=== PATIENT | male | born 1970 | race Caucasian/White ===

== ENCOUNTER 2016-04-29 19:02 | Emergency (ER) | payer BC ==
[2016-04-29] MEDS ORDERED: Aspirin Low Dose CHEW TAB* 81 MG PO ONE (20:13)
[2016-04-29 21:12] LABS: Hematocrit 40 % (42-52); Hemoglobin 13.4 g/dl (14.0-18.0); Mean Corpuscular HGB Conc 34 g/dl (31-36); Mean Corpuscular Hemoglobin 27 pg (27-31); Mean Corpuscular Volume 80 fL (80-94); Mean Platelet Volume 9 um3 (7.4-10.4); Red Cell Distribution Width 13 % (10.5-15); White Blood Count 8.3 10^3/ul (3.5-10.8)
[2016-04-29] MEDS ORDERED: Aspirin EC TAB* 325 MG PO ONE (21:17)
--- NOTE | 2016-04-29 21:17 | RAD ---
INDICATION: Chest pain. COMPARISON: There are no prior studies available for comparison. TECHNIQUE: A portable view of the chest was obtained. FINDINGS: Cardiac and mediastinal contours appear to be within normal limits. The lungs are clear. No pleural effusion is seen. IMPRESSION: NO EVIDENCE FOR ACUTE DISEASE.
[2016-04-29 21:27] LABS: Albumin 4.2 g/dL (3.2-5.2); BUN/Creatinine Ratio 19.4 (8-20); Calcium 9.3 mg/dL (8.6-10.3); EGFR African American 163.5 (>60); EGFR Non-African American 127.1 (>60); Globulin 2.5 g/dL (2-4); Potassium 3.3 mmol/L (3.5-5.0); Total Bilirubin 0.5 mg/dL (0.2-1.0); Total Protein 6.7 g/dL (6.4-8.9)
[2016-04-29 23:39] VITALS: BP 117/75
--- NOTE | 2016-04-30 06:56 | ED ---
Ladarius, DoctorTaylor, scribed for Renuka Salcedo MD on 04/29/16 at 2229 . HPI Chest Pain - HPI Summary HPI Summary: 45 year old male arrived to [facility] c/o chest pain beginning three days ago. He reports pain in the center of his chest, exacerbated by movement when walking and/or bending. He describes his pain as "burning", and reports that the pain was particularly bad today after "breathing in cold air while skiing" around 16: 00. He further reports that he has been experiencing pain on the right and left side, similar to his regular musculoskeletal pain. He regularly sees Dr. Saucedo as well as a physical therapist for chronic musculoskeletal pain; has a PMHx of GERD as well as childhood asthma. - History of Current Complaint Chief Complaint: EDChestPainROMI Time Seen by Provider: 04/29/16 20:49 Hx Obtained From: Patient Onset/Duration: Started Days Ago Timing: Constant Initial Severity: Moderate Current Severity: Moderate Pain Intensity: 7 Pain Scale Used: 0-10 Numeric Chest Pain Radiates To:: Other - "right and left side soreness" Aggravating Factor(s): Position - bending/walking in certain positions, Recumbent Position - lying down exacerbates pain Alleviating Factor(s): Position - Allergy/Home Medications Allergies/Adverse Reactions: Allergies Allergy/AdvReac Type Severity Reaction Status Date / Time Ciprofloxacin Allergy Unknown Unknown Verified 10/12/15 08:00 Reaction Details PMH/Surg Hx/FS Hx/Imm Hx Respiratory History: Reports: Hx Asthma - A CHILD - Immunization History Date of Tetanus Vaccine: utd Date of Influenza Vaccine: fall 2015 Infectious Disease History: No Infectious Disease History: Denies: Traveled Outside the [place] in Last 30 Days - Family History Known Family History: Positive: Other - Father of brain tumor before age 50 Negative: Cardiac Disease - Social History Lives: With Family Alcohol Use: Occasionally Substance Use Type: Reports: None Smoking Status (MU): Never Smoked Tobacco Review of Systems Negative: Fever Positive: Sore Throat Positive: Chest Pain Positive: Other - general musculoskeletal pain on right and left side All Other Systems Reviewed And Are Negative: Yes Physical Exam Triage Information Reviewed: Yes Vital Signs On Initial Exam: Initial Vitals Temp Pulse Resp BP Pulse Ox 99.4 F 86 16 128/90 100 04/29/16 19:05 04/29/16 19:05 04/29/16 19:05 04/29/16 19:05 04/29/16 19:05 Vital Signs Reviewed: Yes Appearance: Positive: Well-Appearing, No Pain Distress Skin: Positive: Warm, Skin Color Reflects Adequate Perfusion, Dry Eyes: Positive: EOMI, IVY ENT: Positive: Pharynx normal, TMs normal Neck: Positive: Supple, Nontender Respiratory/Lung Sounds: Positive: Clear to Auscultation, Breath Sounds Present. Negative: Rales, Rhonchi, Wheezes Cardiovascular: Positive: RRR. Negative: Murmur, Rub Abdomen Description: Positive: Nontender, Soft Bowel Sounds: Positive: Present Musculoskeletal: Positive: Strength/ROM Intact. Negative: Edema Left, Edema Right Neurological: Positive: Sensory/Motor Intact, Alert, Oriented to Person Place, Time, CN Intact II-III Psychiatric: Positive: Affect/Mood Appropriate - Roxana Coma Scale Coma Scale Total: 15 Diagnostics - Vital Signs Vital Signs Temp Pulse Resp BP Pulse Ox 04/29/16 19:05 99.4 F 86 16 128/90 100 - Laboratory Lab Results: Lab Results 04/29/16 04/29/16 04/29/16 Range/Units 21:00 21:00 21:00 WBC 8.3 (3.5-10.8) 10^3/ul RBC 5.00 (4.0-5.4) 10^6/ul Hgb 13.4 L (14.0-18.0) g/dl Hct 40 L (42-52) % MCV 80 (80-94) fL MCH 27 (27-31) pg MCHC 34 (31-36) g/dl RDW 13 (10.5-15) % Plt Count 223 (150-450) 10^3/ul MPV 9 (7.4-10.4) um3 Neut % (Auto) 59.6 (38-83) % Lymph % (Auto) 23.5 L (25-47) % Coffey % (Auto) 11.1 H (1-9) % Eos % (Auto) 5.4 (0-6) % Baso % (Auto) 0.4 (0-2) % Absolute Neuts (auto) 5.0 (1.5-7.7) 10^3/ul Absolute Lymphs (auto) 1.9 (1.0-4.8) 10^3/ul Absolute Monos (auto) 0.9 H (0-0.8) 10^3/ul Absolute Eos (auto) 0.4 (0-0.6) 10^3/ul Absolute Basos (auto) 0 (0-0.2) 10^3/ul Absolute Nucleated RBC 0.01 10^3/ul Nucleated RBC % 0.1 APTT (26.0-36.3) seconds Sodium 136 (133-145) mmol/L Potassium 3.3 L (3.5-5.0) mmol/L Chloride 103 (101-111) mmol/L Carbon Dioxide 28 (22-32) mmol/L Anion Gap 5 (2-11) mmol/L BUN 13 (6-24) mg/dL Creatinine 0.67 (0.67-1.17) mg/dL Est GFR ( Amer) 163.5 (>60) Est GFR (Non-Af Amer) 127.1 (>60) BUN/Creatinine Ratio 19.4 (8-20) Glucose 124 H (70-100) mg/dL Lactic Acid 0.7 (0.5-2.0) mmol/L Calcium 9.3 (8.6-10.3) mg/dL Total Bilirubin 0.50 (0.2-1.0) mg/dL AST 18 (13-39) U/L ALT 23 (7-52) U/L Alkaline Phosphatase 64 (34-104) U/L Troponin I 0.00 (<0.04) ng/mL B-Natriuretic Peptide ( - 100) pg/mL Total Protein 6.7 (6.4-8.9) g/dL Albumin 4.2 (3.2-5.2) g/dL Globulin 2.5 (2-4) g/dL Albumin/Globulin Ratio 1.7 (1-3) 04/29/16 04/29/16 Range/Units 21:00 21:00 WBC (3.5-10.8) 10^3/ul RBC (4.0-5.4) 10^6/ul Hgb (14.0-18.0) g/dl Hct (42-52) % MCV (80-94) fL MCH (27-31) pg MCHC (31-36) g/dl RDW (10.5-15) % Plt Count (150-450) 10^3/ul MPV (7.4-10.4) um3 Neut % (Auto) (38-83) % Lymph % (Auto) (25-47) % Coffey % (Auto) (1-9) % Eos % (Auto) (0-6) % Baso % (Auto) (0-2) % Absolute Neuts (auto) (1.5-7.7) 10^3/ul Absolute Lymphs (auto) (1.0-4.8) 10^3/ul Absolute Monos (auto) (0-0.8) 10^3/ul Absolute Eos (auto) (0-0.6) 10^3/ul Absolute Basos (auto) (0-0.2) 10^3/ul Absolute Nucleated RBC 10^3/ul Nucleated RBC % APTT 29.6 (26.0-36.3) seconds Sodium (133-145) mmol/L Potassium (3.5-5.0) mmol/L Chloride (101-111) mmol/L Carbon Dioxide (22-32) mmol/L Anion Gap (2-11) mmol/L BUN (6-24) mg/dL Creatinine (0.67-1.17) mg/dL Est GFR ( Amer) (>60) Est GFR (Non-Af Amer) (>60) BUN/Creatinine Ratio (8-20) Glucose (70-100) mg/dL Lactic Acid (0.5-2.0) mmol/L Calcium (8.6-10.3) mg/dL Total Bilirubin (0.2-1.0) mg/dL AST (13-39) U/L ALT (7-52) U/L Alkaline Phosphatase (34-104) U/L Troponin I (<0.04) ng/mL B-Natriuretic Peptide 13 ( - 100) pg/mL Total Protein (6.4-8.9) g/dL Albumin (3.2-5.2) g/dL Globulin (2-4) g/dL Albumin/Globulin Ratio (1-3) Result Diagrams: 04/29/16 21:00 04/29/16 21:00 Lab Statement: Any lab studies that have been ordered have been reviewed, and results considered in the medical decision making process. - Radiology Chest X-Ray Radiology Interpretation Completed By: Radiologist - IMPRESSION: NO EVIDENCE FOR ACUTE DISEASE. - EKG 20:30 Cardiac Rate: NL - 86 BPM EKG Rhythm: Sinus Rhythm ST Segment: Normal EKG Interpretation: EKG Normal Chest Pain Course/Dx - Course Course Of Treatment: pt with 2 neg trops normal ekgs ok to go home - Diagnoses Provider Diagnoses: Chest pain Discharge - Discharge Plan Condition: Stable Disposition: HOME Prescriptions: Omeprazole CAP* [Prilosec CAP* 20 MG] 20 mg PO DAILY #14 cap.dr Patient Education Materials: Chest Pain (ED) Referrals: Priya Saucedo MD [Primary Care Provider] - The documentation as recorded by the Doctor quintana Tahera accurately reflects the service I personally performed and the decisions made by me, Renuka Salcedo MD.
== END 2016-04-29 23:39 | disposition home or self-care (01) ==
LOC: ED 19:02
DX: R07.9 Chest pain, unspecified (principal); J02.9 Acute pharyngitis, unspecified; R52 Pain, unspecified
CPT/HCPCS: 36415; 71010; 80053; 83605; 83880; 84484; 85025; 85730; 93005; 99283; A9270-GY

== ENCOUNTER 2017-07-23 20:11 | Emergency (ER) | payer BC ==
[2017-07-23] MEDS ORDERED: Metoclopramide IV* 5 MG/ML 2 ML VIAL IV ONE (21:47)
[2017-07-23] MEDS ORDERED: Ketorolac INJ* 30 MG/ML 1 ML VIAL IV ONE (21:47)
[2017-07-23] MEDS ORDERED: HYDROmorphone INJ* 2 MG/ML CARPUJECT SYRINGE IV SLOW PU ONE (21:47)
[2017-07-23] MEDS ORDERED: NS 0.9% 1000 ML* 1,000 ML IV ONE (21:47)
[2017-07-23 22:10] LABS: ABS Basophils 0.1 10^3/ul (0-0.2); ABS Eosinophils 0 10^3/ul (0-0.6); ABS Lymphocytes 0.8 10^3/ul (1.0-4.8); ABS Monocytes 0.8 10^3/ul (0-0.8); ABS Neutrophils 12.7 10^3/ul (1.5-7.7); ABS Nucleated RBC 0 10^3/ul; Eosinophil % 0.1 % (0-6); Hematocrit 41 % (42-52); Hemoglobin 13.4 g/dl (14.0-18.0); Lymphocyte % 5.6 % (25-47); Mean Corpuscular HGB Conc 33 g/dl (31-36); Mean Corpuscular Hemoglobin 27 pg (27-31); Mean Corpuscular Volume 83 fL (80-94); Mean Platelet Volume 8.6 um3 (7.4-10.4); Nucleated Red Blood Cells % 0; Platelet Count 244 10^3/ul (150-450); Red Cell Distribution Width 13 % (10.5-15); White Blood Count 14.4 10^3/ul (3.5-10.8)
[2017-07-23 22:20] LABS: EGFR Non-African American 78.8 (>60)
[2017-07-23 23:34] LABS: Urine Appearance Clear; Urine Blood 3+ (Negative); Urine Color Yellow; Urine Ketones Trace (Negative); Urine Protein 1+(30 mg/dL) (Negative); Urine Specific Gravity 1.023 (1.010-1.030); Urine Urobilinogen Negative (Negative)
--- NOTE | 2017-07-24 00:07 | ED ---
Sandy Durand Rebecca, scribed for Parvin Bernal MD on 07/23/17 at 2140 . Abdominal Pain/Male - HPI Summary HPI Summary: Pt is a 46 y/o M who presents to ED c/o L flank pain for 4 days. Sx have been intermittent since onset, constant for the last 4 hours. Pt was given a diagnosis of 5 mm left kidney stone yesterday, visualized via XR in [place]. Was given Percocet and Advil, has taken 3 Percocet today (last at 1800) which has slightly alleviated the pain. On triage, pain was severe, and on evaluation it is moderate, ranked 6/10. Additionally c/o nausea and decreased appetite. PMHx kidney stones. Has an appointment with Dr. Chen on Tuesday (6 days from today). - History of Current Complaint Chief Complaint: EDFlankPain Stated Complaint: LT FLANK PAIN/URINATING BLOOD Time Seen by Provider: 07/23/17 21:23 Hx Obtained From: Patient Onset/Duration: Lasting Days - 4 days, Still Present Timing: Intermittent Severity Currently: Severe Pain Intensity: 10 Pain Scale Used: 0-10 Numeric Location: Flank - Left Aggravating Factor(s): Nothing Alleviating Factor(s): Medications - Percocet and Advil Associated Signs And Symptoms: Positive: Decreased Appetite, Nausea - Allergies/Home Medications Allergies/Adverse Reactions: Allergies Allergy/AdvReac Type Severity Reaction Status Date / Time ciprofloxacin Allergy Unknown Verified 07/23/17 20:18 Reaction Details PMH/Surg Hx/FS Hx/Imm Hx Respiratory History: Reports: Hx Asthma - A CHILD History: Reports: Hx Kidney Stones - Immunization History Date of Tetanus Vaccine: utd Date of Influenza Vaccine: fall 2015 Infectious Disease History: No Infectious Disease History: Denies: Traveled Outside the [place] in Last 30 Days - Family History Known Family History: Positive: Other - Father of brain tumor before age 50 Negative: Cardiac Disease - Social History Alcohol Use: Occasionally Substance Use Type: Reports: None Smoking Status (MU): Never Smoked Tobacco Review of Systems Negative: Fever Positive: Nausea, Other - Decreased appetite Positive: flank pain - Left All Other Systems Reviewed And Are Negative: Yes Physical Exam - Summary Physical Exam Summary: VITAL SIGNS: Reviewed. GENERAL: ~Patient is a well-developed and nourished male who is lying comfortable in the stretcher. Patient is not in any acute respiratory distress. HEAD AND FACE: No signs of trauma. No ecchymosis, hematomas or skull depressions. No sinus tenderness. EYES: PERRLA, EOMI x 2, No injected conjunctiva, no nystagmus. EARS: Hearing grossly intact. Ear canals and tympanic membranes are within normal limits. MOUTH: Oropharynx within normal limits. NECK: Supple, trachea is midline, no adenopathy, no JVD, no carotid bruit, no c- spine tenderness, neck with full ROM. CHEST: Symmetric, no tenderness at palpation LUNGS: Clear to auscultation bilaterally. No wheezing or crackles. CVS: Regular rate and rhythm, S1 and S2 present, no murmurs or gallops appreciated. ABDOMEN: Soft, non-tender. No signs of distention. No rebound no guarding, and no masses palpated. Bowel sounds are normal. EXTREMITIES: FROM in all major joints, no edema, no cyanosis or clubbing. NEURO: Alert and oriented x 3. No acute neurological deficits. Speech is normal and follows commands. SKIN: Dry and warm Triage Information Reviewed: Yes Vital Signs On Initial Exam: Initial Vitals Temp Pulse Resp BP Pulse Ox 98.1 F 58 22 163/97 97 07/23/17 20:16 07/23/17 20:16 07/23/17 20:16 07/23/17 20:16 07/23/17 20:16 Vital Signs Reviewed: Yes Diagnostics - Vital Signs Vital Signs Temp Pulse Resp BP Pulse Ox 07/23/17 20:16 98.1 F 58 22 163/97 97 - Laboratory Result Diagrams: 07/23/17 21:54 07/23/17 21:54 Lab Statement: Any lab studies that have been ordered have been reviewed, and results considered in the medical decision making process. - CT CT Abd/Pel CT Interpretation Completed By: Radiologist - There is scarring and atelectatic changes at the lung bases. There is a proximal left ureteral stone measuring 5 mm which is approximately 3 cm downstream from the ureteropelvic junction. Associated moderate hydronephrosis with perinephretic and periureteral stranding. There are 3 nonobstructing stones in the left kidney the largest measuring 4 mm. The right kidney is unremarkable. There is a lobulated cyst in the right lobe of the liver measuring 2 cm. 2 subcentimeter hypodensities in the left lobe are likely cysts, too small to characterize. The unenhanced upper abdominal visceral organs are otherwise unremarkable. There is no bowel distention. A normal appendix is visualized. Left inguinal hernia containing fat. No intra-abdominal free air or free fluid. ED physician reviewed this report. Pending official report. Re-Evaluation - Re-Evaluation First Eval Re-Evaluation Time: 23:50 Comment: Discussed results with pt. He is now pain free in the ED and declined Flomax stating that it does not work for him. Pt has Percocet at home and he can take it for pain. Abdominal Pain Fem Course/Dx - Course Assessment/Plan: Pt is a 46 y/o M who presents to ED c/o intermittent L flank pain for 4 days, constant for the last 4 hours. Pt was given a diagnosis of 5 mm left kidney stone yesterday, visualized via XR in [place]. Was given Percocet and Advil, has taken 3 Percocet today (last at 1800) which has slightly alleviated the pain. On triage, pain was severe, and on evaluation it is moderate, ranked 6/10. Additionally c/o nausea and decreased appetite. PMHx kidney stones. Has an appointment with Dr. Chen on Tuesday (6 days from today). CT abd/pel impression above. Blood work and UA were done. In the ED course, pt was given fluids, Reglan, Toradol, and Dilaudid which improved pain. Pt is now pain free in the ED and declined Flomax stating that it does not work for him. Pt has Percocet at home and he can take it for pain. Pt will be D/C to home with Dx of left ureteral stone and left renal colic to follow up with urology as already scheduled. He understands and agrees. Allergy noted. - Diagnoses Provider Diagnoses: Left ureteral stone, Renal colic on left side Discharge - Sign-Out/Discharge Documenting (check all that apply): Discharge/Admit/Transfer - Discharge - Discharge Plan Condition: Stable Disposition: HOME Patient Education Materials: Renal Colic (ED), Ureteral Stones (ED) Referrals: Priya Saucedo MD [Primary Care Provider] - 3 Days Additional Instructions: Follow up with your urologist as already scheduled. Use Percocet at home for pain management as needed. RETURN TO ED FOR ANY NEW OR WORSENING SYMPTOMS. The documentation as recorded by the Sandy quintana Rebecca accurately reflects the service I personally performed and the decisions made by , Pravin Bernal MD.
[2017-07-24 00:19] VITALS: BP 154/86
--- NOTE | 2017-07-24 10:09 | RAD ---
CLINICAL HISTORY: Left flank pain in a patient who reports a history of renal stones COMPARISON: CT of the abdomen and pelvis dated October 23, 2008 TECHNIQUE: Noncontrast CT examination of the abdomen and pelvis from the lung bases through the initial tuberosities. FINDINGS: VISUALIZED LUNG BASES: The visualized lung bases are grossly clear. There is no pleural effusion. ABDOMEN AND PELVIS: Evaluation of the solid organs and vasculature is limited without intravenous contrast. In the right lobe of the liver there is a 2 cm fluid density cyst that is increased in size since the previous CT examination. In the left lobe of the liver there is a 3 mm hypoattenuating focus that is too small to characterize further. The liver is otherwise homogenous in attenuation. The spleen, pancreas and adrenal glands are grossly normal in appearance. The gallbladder is normal. The right kidney is normal in appearance without focal mass, calcification or signs of hydronephrosis. There are 2 punctate calcifications in the mid-level and lower pole of the left kidney. There is mild to moderate left-sided hydronephrosis. At the proximal left ureter just beyond the ureteropelvic junction there is a calcification measuring just under 6 mm in greatest dimension apices coronal image 51 and axial image 74). No other ureteral calculi are seen. Evaluation of the gastrointestinal tract is limited without oral contrast. The small and large bowel are not distended.The patient's normal appendix is identified in the right lower quadrant the partially gas-filled appendix is identified measuring 6 mm in diameter (coronal image 49 and axial image 103). There is no gross retroperitoneal or mesenteric lymphadenopathy. There is a fat-containing left inguinal hernia. The abdominal aorta and iliac arteries are normal in course and diameter. Degenerative changes include multilevel loss of intervertebral disc height involving the lower thoracic and lumbar spine.There are no sinister bone lesions. IMPRESSION: 1. The proximal left ureter there is a 6 mm calcification with ipsilateral mild to moderate hydronephrosis. 2. There are additional chronic and degenerative changes described in the body the report.
== END 2017-07-24 00:18 | disposition home or self-care (01) ==
LOC: ED 20:11
DX: N13.2 Hydronephrosis with renal and ureteral calculous obstruction (principal); J98.4 Other disorders of lung; J98.11 Atelectasis; K76.89 Other specified diseases of liver; K40.90 Unilateral inguinal hernia, without obstruction or gangrene, not specified as recurrent; Z88.3 Allergy status to other anti-infective agents
CPT/HCPCS: 36415; 74176; 80053; 81003; 81015; 83735; 85025; 86140; 87086; 99284

== ENCOUNTER 2017-07-25 15:58 | Day surgery (SDC) | payer BC ==
[2017-07-25] MEDS ORDERED: cefTRIAXone(*) 1 GM ADVAN/BAG ONE (16:19)
[2017-07-25] MEDS ORDERED: Morphine VIAL* 10 MG/ML 1 ML VIAL ONE (16:31)
[2017-07-25] MEDS ORDERED: Ondansetron SYRINGE* 4 MG/2 ML SYRINGE (from 40mg/20ml vial) IV PRN (16:33)
--- NOTE | 2017-07-25 16:38 | HP ---
DATE OF PLANNED ADMISSION AND SURGERY: 07/25/2017. HISTORY OF PRESENT ILLNESS: Mr. Alcazar is a 46-year-old, white male who is admitted with left renal colic, proximal left ureteral calculus, for cystoscopy and placement of left ureteral stent. Mr. Alcazar is a known stone former who had passed stones spontaneously in the past. He was doing fine until about four days ago when he was in [place] and developed symptoms of left renal colic. The pain was very severe, but was not associated with any fever or chills. He was evaluated in an ER there, KUB shoed a 6 mm calculus in the area of the Lt UPJ. He was discharged home on pain medications, and patient drove with his family back home in [place]. He presented two days ago to the emergency room with recurrent left renal colic. Noncontrast CT of the abdomen and pelvis showed a 6 mm calculus at the left ureteropelvic junction associated with moderate hydronephrosis. He did not have any fever or chills. His lab work showed a white count of 14,000 and his neutrophils were 12 and his serum creatinine was 1.0. The patient was managed with IV fluids, pain medication, and was sent home. He presented to our office this afternoon with persistent severe pain, associated with nausea and vomiting. He had a renal ultrasound in the office which showed moderate left hydronephrosis and the 6 mm calculus still in the proximal left ureter. His urine analysis in the office showed +2 blood, was negative otherwise. Because of the above history and finding, this patient is admitted urgently for the above procedure. PAST MEDICAL HISTORY AND SYSTEM REVIEW: He is in very good health. MEDICATIONS: He is on no chronic medications. ALLERGIES: He denies any allergies to medications. PHYSICAL EXAMINATION GENERAL: He is a pale looking, white male who is in moderate pain. VITAL SIGNS: Blood pressure 120/80, pulse 70, temperature 97.5, oxygen saturation 98 percent on room air. LUNGS: Clear. HEART: Regular and rhythmic, no murmurs. ABDOMEN: Soft, but he has moderate left CVA tenderness. The rest of the abdomen exam is normal. IMPRESSION: Recurrent episodes of left renal colic secondary to a 6 mm calculus in the proximal left ureter. PLAN: Cystoscopy and placement of left ureteral stent. If the calculus is accessible, a left ureteroscopy and laser lithotripsy will be performed. Otherwise, the patient will be brought back in for shockwave lithotripsy and removal of the left ureteral stent at a later date. [id number]/[facility] #: [id number] MTDNenita
[2017-07-25] MEDS ORDERED: Iohexol 180 (CONTRAST) 10 ML SDV IV ONE (17:07)
[2017-07-25] MEDS ORDERED: Lidocaine 2% PF * 5 ML VIAL ONE (17:14)
[2017-07-25] MEDS ORDERED: Midazolam* 1 MG/ML 5 ML VIAL (5 MG) ONE (17:14)
[2017-07-25] MEDS ORDERED: Propofol* 10 MG/ML 20 ML BTL IV PUSH ONE (17:14)
[2017-07-25] MEDS ORDERED: Ondansetron ODT TAB* 4 MG ONE (17:14)
[2017-07-25] MEDS ORDERED: fentaNYL* 50 MCG/ML 2 ML VIAL (100 MCG VIAL) ONE (17:14)
[2017-07-25] MEDS ORDERED: Dexamethasone IV* 4 MG/ML 1 ML (4 MG) ONE (17:14)
[2017-07-25] MEDS ORDERED: Famotidine IV* 10 MG/ML 2 ML (20 mg) ONE (17:34)
[2017-07-25] MEDS ORDERED: Metoclopramide IV* 5 MG/ML 2 ML VIAL ONE (17:38)
[2017-07-25] MEDS ORDERED: Buffered Lidocaine 0.9% SYRIN* 5 ML/SYR SYRINGE INTRADERM ONE (17:38)
[2017-07-25] MEDS ORDERED: Metoclopramide IV* 5 MG/ML 2 ML VIAL IV SLOW PU ONE (17:38)
[2017-07-25] MEDS ORDERED: Famotidine IV* 10 MG/ML 2 ML (20 mg) IV ONE (17:38)
[2017-07-25] MEDS ORDERED: Ketorolac INJ* 30 MG/ML 1 ML VIAL ONE (18:04)
[2017-07-25] MEDS ORDERED: Naloxone* 0.4 MG/ML 1 ML VIAL IV PRN (18:35)
[2017-07-25] MEDS ORDERED: Ondansetron ODT TAB* 4 MG PO PRN (18:35)
[2017-07-25] MEDS ORDERED: fentaNYL* 50 MCG/ML 2 ML VIAL (100 MCG VIAL) IV PRN (18:35)
[2017-07-25] MEDS ORDERED: oxyCODONE/Acetamin 5/325 MG* TAB PO PRN (18:35)
[2017-07-25 19:24] VITALS: BP 125/72
--- NOTE | 2017-07-25 19:40 | RAD ---
INDICATION: Left stent insertion. COMPARISON: Correlation is made with a prior CT of the abdomen and pelvis from July 23, 2017. TECHNIQUE: 8 seconds of intermittent fluoroscopic guidance were provided and 4 spot films of the abdomen were centered on the left side. FINDINGS: There is partial opacification of the left renal collecting system. Subsequently there is placement of a double-J stent catheter on the left side which demonstrates normal course. IMPRESSION: INTRAOPERATIVE CONTROL FILMS. CPT II Codes: G9500
--- NOTE | 2017-07-25 19:56 | RAD ---
INDICATION: Postop left ureteral stent placement. COMPARISON: Comparison is made with a prior CT of the abdomen and pelvis from July 23, 2017. TECHNIQUE: Frontal supine films of the abdomen were obtained. FINDINGS: The small bowel and colon appear nondistended. There is a left ureteral stent present on the left side which demonstrates normal course. There is a 8 mm calculus which projects lateral to the proximal coil of the ureteral stent catheter. IMPRESSION: STATUS POST PLACEMENT OF A LEFT URETERAL STENT. THERE IS A CALCULUS WHICH PROJECTS LATERAL TO THE PROXIMAL STENT.
--- NOTE | 2017-07-26 13:32 | OP ---
CC: Dr. Priya Saucedo * DATE OF OPERATION: 07/25/17 - [facility] DATE OF : 66 SURGEON: Eduardo Pagan MD. ANESTHESIOLOGIST: Dr. Minh Velasco. ANESTHESIA: General. PRE-OP DIAGNOSES: 1. Left renal colic. 2. Proximal left ureteral calculus (7 mm). POST-OP DIAGNOSES: 1. Left renal colic. 2. Proximal left ureteral calculus (7 mm). OPERATIVE PROCEDURE: 1. Cystoscopy. 2. Left retrograde pyelography. 3. Placement of left ureteral stent (6-Macedonian). INDICATION FOR PROCEDURE: Mr. Alcazar is a 46-year-old white male who had past history of renal calculus disease and who has been having recurrent episodes of left renal colic for the last [address] of the abdomen and pelvis two days ago and renal renal ultrasound today both showed a 7 mm proximal left ureteral calculus associated with moderate hydronephrosis. The patient has been in significant amount of pain with nausea and vomiting. Because of the above history and finding, he is brought in for urgent Lt ureteral stent placement in preparation for definitive treatment of the stone. PATHOLOGY: At cystoscopy, the penile and bulbar urethrae looked normal. The prostatic urethra was short and open. Examination of the bladder showed normal mucosa. No suspicious bladder lesions were seen. There was a single orthotopic ureteral orifice on each side. At fluoroscopy, a radiopaque calculus was noted in the proximal ureter at the level of L2-L3. Upon left retrograde pyelography, moderate left hydronephrosis was noted. DESCRIPTION OF PROCEDURE: After successful general anesthesia, the patient was placed in the lithotomy position and was prepped and draped for a cystoscopy. Cystoscopy was performed. The bladder was carefully inspected and the above findings were noted. A flexible tip guidewire was then introduced into the left orifice and passed inside the renal pelvis under fluoroscopic guidance. Resistance was encountered in the proximal ureter at the level of the stone. Following the placement of the guidewire, the calculus could not be well visualized and it could have migrated proximally. Retrograde pyelography was then performed. A size 6-Macedonian stent was then placed with the proximal end coiling in the renal pelvis and the distal end coiling inside the bladder. The bladder was emptied and the cystoscope was removed. Rectal examination was then performed to check on the prostate. The prostate was felt non-enlarged and non-suspicious. The patient tolerated the procedure well and left the operating room in good condition. The plan is to obtain a KUB postoperatively. Depending upon the position of the stone, we will decide regarding its definitive treatment either by shockwave lithotripsy or by ureteroscopy. [id number]/[facility] #: [id number] MTDD
== END 2017-07-25 19:44 | disposition home or self-care (01) ==
LOC: OR 15:58
PROVIDERS: ATTEND Urology
DX: N13.2 Hydronephrosis with renal and ureteral calculous obstruction (principal); Z87.442 Personal history of urinary calculi; R31.9 Hematuria, unspecified; K21.9 Gastro-esophageal reflux disease without esophagitis
CPT/HCPCS: 74018; 74420; A9270-GY; C1876; J0696; J1100; J1885; J2250; J2270; J2704; J2765; J3010

== ENCOUNTER 2017-08-01 08:07 | Day surgery (SDC) | payer BC ==
[~2017-08-01 08:07] MED LIST: Buffered Lidocaine 0.9% SYRIN* 5 ML/SYR SYRINGE INTRADERM ONE
[2017-08-01] MEDS ORDERED: cefTRIAXone(*) 1 GM ADVAN/BAG ONE (08:12)
[2017-08-01] MEDS ORDERED: Buffered Lidocaine 0.9% SYRIN* 5 ML/SYR SYRINGE ONE (08:12)
--- NOTE | 2017-08-01 08:48 | RAD ---
HISTORY: shockwave lithotripsy, left ureteral calculus COMPARISONS: July 27, 2017 VIEWS: Frontal views of the abdomen. FINDINGS: BOWEL: There is a nonspecific bowel gas pattern, with nondilated small bowel gas noted. CALCULI: Again noted is a 0.5 cm calculus of the lower pole of the left renal parenchymal shadow. This is stable. Left ureteral stent is noted. BONES AND SOFT TISSUES: There are no osseous abnormalities. OTHER FINDINGS: The lung bases are clear. There is no subphrenic gas. IMPRESSION: STABLE LEFT-SIDED NEPHROLITHIASIS WITH A LEFT URETERAL STENT
[2017-08-01] MEDS ORDERED: Naloxone* 0.4 MG/ML 1 ML VIAL IV PRN (09:16)
[2017-08-01] MEDS ORDERED: PROCHLORPERAZINE INJ 5 MG/ML 2 ML VIAL IV PRN (09:16)
[2017-08-01] MEDS ORDERED: Acetaminophen TAB* 325 MG PO PRN (09:16)
[2017-08-01] MEDS ORDERED: Ondansetron ODT TAB* 4 MG PO PRN (09:16)
[2017-08-01] MEDS ORDERED: HYDROcodone/ACETAMIN 5-325 MG* 1 TAB PO PRN (09:16)
[2017-08-01] MEDS ORDERED: DiMENhydriNATE IV* 50 MG/ML VIAL IV PUSH PRN (09:16)
[2017-08-01] MEDS ORDERED: fentaNYL* 50 MCG/ML 2 ML VIAL (100 MCG VIAL) IV PRN (09:16)
[2017-08-01] MEDS ORDERED: Midazolam* 1 MG/ML 2 ML VIAL (2 MG) ONE (09:56)
[2017-08-01] MEDS ORDERED: fentaNYL* 50 MCG/ML 2 ML VIAL (100 MCG VIAL) ONE (09:56)
[2017-08-01] MEDS ORDERED: Propofol* 10 MG/ML 20 ML BTL IV PUSH ONE (10:34)
[2017-08-01] MEDS ORDERED: Dexamethasone IV* 4 MG/ML 1 ML (4 MG) ONE (10:34)
[2017-08-01] MEDS ORDERED: Famotidine IV* 10 MG/ML 2 ML (20 mg) ONE (10:34)
[2017-08-01] MEDS ORDERED: Lidocaine 2% PF * 5 ML VIAL ONE (10:34)
[2017-08-01 12:17] VITALS: BP 138/82
--- NOTE | 2017-08-04 09:48 | OP ---
DATE OF OPERATION: 08/01/17 - [facility] DATE OF : 66 SURGEON: Eduardo Pagan MD ANESTHESIOLOGIST: Rolf Conroy MD ANESTHESIA: General. PRE-OP DIAGNOSES: 1. Left renal calculus. 2. Status post placement left ureteral stent. POST-OP DIAGNOSES: 1. Left renal calculus. 2. Status post placement left ureteral stent. OPERATIVE PROCEDURE: 1. Shock wave lithotripsy of left renal calculus. 2. Flexible cystoscopy and removal of left ureteral stent. INDICATIONS FOR PROCEDURE: Mr. Alcazar is a 46-year-old white male who was admitted 1 week ago with left renal colic caused by a 6 mm calculus at the left ureteropelvic junction. He had urgent placement of left ureteral stent. Post- operative KUB showed the left stent in good position and the calculus to have migrated into a lower pole johana of the left kidney. The patient is admitted for definitive treatment of the stone. Pathology: preoperative KUB again showed the left ureteral stent in good position and a 6 mm calculus in the lower pole johana of the left kidney. No other abnormal calcifications were seen. Cystoscopy showed the distal limb of the stent coming out of the left orifice. DESCRIPTION OF PROCEDURE: After successful general anesthesia, the patient was placed in the supine position on the shock wave lithotripsy table. The left renal calculus was visualized in both the PA and oblique x-ray views and the position of the patient and generator were adjusted to have the stone in the left renal calculus in the focus of the shock waves. A total of 1,300 shocks were then delivered at 60 shocks per minute. The proper fragmentation and positioning of the stone were monitored periodically. At the completion of the treatment, there was very good fragmentation of the stone. Decision was then made to proceed with the stent removal. With the patient still in the supine position. He was prepped and draped for cystoscopy. Flexible cystoscopy was performed. The stent was grasped and was pulled out intact. The patient tolerated the procedure well and left the operating room in good condition. [id number]/[facility] #: [id number]
== END 2017-08-01 12:44 | disposition home or self-care (01) ==
LOC: OR 08:07
PROVIDERS: ATTEND Urology
DX: N20.0 Calculus of kidney (principal)
CPT/HCPCS: 74018; J0696; J1100; J2250; J2704; J3010